=== PATIENT | female | born 1980 ===

== ENCOUNTER 2022-01-20 06:06 | Inpatient (IN) ==
[2022-01-20] MEDS ORDERED: Tobramycin Sulf (Sterile) 1.2 GM VIAL ONE (06:36)
[2022-01-20] MEDS ORDERED: Ethanol\\Acetic Acid\\Na Ace\\Ben 1,000 ML IRRIG.SOLN IR ONE (06:36)
[2022-01-20] MEDS ORDERED: Vancomycin 1,000 MG VIAL ONE (06:37)
[2022-01-20] MEDS ORDERED: CeFAZolin Syr 3,000MG/30 ML 3,000 MG/30 ML SYRINGE IVPB ONE (06:49)
[2022-01-20] MEDS ORDERED: Gentamicin 440 MG in 0.9 % Sodium Chloride 100 ML IVPB ONE (06:50)
[2022-01-20] MEDS ORDERED: Ringers Solution, Lactated 1,000 ML IVC SCH ×2 (07:00→11:53)
[2022-01-20] MEDS ORDERED: *HR* Midazolam HCl 2 MG/2 ML VIAL ONE (07:38)
[2022-01-20] MEDS ORDERED: ROPIVACAINE/PF/NS 0.25% 1 EACH SYRINGE INTRAART ONE (07:39)
[2022-01-20] MEDS ORDERED: Ropivacaine/PF 0.5% 30 ML VIAL ONE (07:39)
[2022-01-20] MEDS ORDERED: *HR* Propofol 200 MG/20 ML VIAL IVP ONE ×2 (07:55→09:54)
[2022-01-20] MEDS ORDERED: Lidocaine -MPF 2% 5 ML VIAL ONE (07:57)
[2022-01-20] MEDS ORDERED: *HR* Succinylcholine 200 MG/10 ML VIAL IVP ONE (07:57)
[2022-01-20] MEDS ORDERED: Ondansetron 4 MG/2 ML VIAL ONE (07:57)
[2022-01-20] MEDS ORDERED: Tranexamic Acid 1,000 MG/10 ML VIAL ONE ×2 (08:01)
[2022-01-20] MEDS ORDERED: Ropivacaine/PF 0.5% 49.24 ML, EPINEPHrine 0.5 MG, cloNIDine 0.08 MG, 0.9 % Sodium Chlor... INTRAART ONE (08:15)
[2022-01-20] MEDS ORDERED: Povidone-Iodine 45 ML, Sodium Chloride IRRigation 1,000 ML IR ONE (08:15)
[2022-01-20] MEDS ORDERED: *HR* Rocuronium Bromide 50 MG/5 ML VIAL ONE (08:18)
[2022-01-20] MEDS ORDERED: *HR* Midazolam HCl 2 MG/2 ML VIAL IVP ONE ×2 (08:20→11:03)
[2022-01-20] MEDS ORDERED: *HR* FentaNYL (PF) 100 MCG/2 ML VIAL ONE (08:41)
[2022-01-20] MEDS ORDERED: Sugammadex Sodium 200 MG/2 ML VIAL IV ONE (09:42)
[2022-01-20] MEDS: *HR* HYDROmorphone PF 0.5 MG/0.5 ML SYRINGE IVP PRN ×4 (10:16→10:53)
[2022-01-20] MEDS ORDERED: Acetaminophen IV 1,000 MG/100 ML BAG IVPB ONE (10:34)
[2022-01-20] MEDS ORDERED: Naloxone 0.4 MG/ML INJ IVP PRN (11:53)
[2022-01-20] MEDS ORDERED: MOM Conc 10 ML UD.LIQ PO PRN (11:53)
[2022-01-20] MEDS ORDERED: Ondansetron 4 MG/2 ML VIAL IVP PRN (11:53)
[2022-01-20] MEDS ORDERED: *HR* Promethazine 25 MG/ML VIAL IM PRN (11:53)
[2022-01-20] MEDS ORDERED: Sennosides 8.6 MG TABLET PO PRN (11:53)
[2022-01-20] MEDS ORDERED: Ketorolac 30 MG/ML VIAL IVP ONE (13:01)
[2022-01-20] MEDS ORDERED: Pregabalin 75 MG CAPSULE PO ONE (13:02)
[2022-01-20] MEDS ORDERED: tiZANidine 4 MG TABLET PO ONE (13:03)
[2022-01-20] MEDS: Ketorolac 30 MG/ML VIAL IVP SCH ×2 (14:58→17:30)
[2022-01-20] MEDS: Gabapentin 400 MG CAPSULE PO SCH ×2 (15:23→20:34)
[2022-01-20] MEDS: CeFAZolin 2 GM/120 ML BAG IVPB SCH (17:29)
[2022-01-20] MEDS: Ascorbic Acid 500 MG TABLET PO SCH (17:30)
[2022-01-20] MEDS: *HR* OxyCODONE Immed Rel 5 MG TABLET PO PRN (22:38)
[2022-01-21] MEDS: Ketorolac 30 MG/ML VIAL IVP SCH ×2 (00:15→05:30)
[2022-01-21] MEDS: CeFAZolin 2 GM/120 ML BAG IVPB SCH (00:19)
[2022-01-21] MEDS: *HR* OxyCODONE Immed Rel 5 MG TABLET PO PRN (05:30)
[2022-01-21 05:55] LABS: Basophils % 0.2 %; Eosinophils % 0.1 %; Hemoglobin 11.8 g/dL (11.5-15.4); Immature Granulocytes % 0.2 % (0-4); Lymphocytes # 1.5 K/mcL (0.6-4.6); Lymphocytes % 11.9 %; Mean Corpuscular HGB Conc 31.9 g/dL (31.6-35.5); Mean Corpuscular Hemoglobin 29.7 pg (28.0-33.3); Mean Corpuscular Volume 93.2 fL (83.0-100.0); Mean Platelet Volume 9.8 fL (9.4-12.4); Monocytes # 0.9 K/mcL (0.0-1.3); Neutrophils # 10.2 K/mcL (1.6-8.9); Platelet Count 312 K/mcL (140-400); Red Blood Count 3.97 M/mcL (3.82-4.97); Red Cell Distribution Width 13.2 % (11.5-14.5); Segmented Neutrophils % 80.6 %; White Blood Count 12.6 K/mcL (4.3-11.1)
[2022-01-21 06:09] LABS: BUN/Creatinine Ratio 14 (6-26); Blood Urea Nitrogen 11 mg/dL (6-20); Calcium 8.8 mg/dL (8.6-10.3); Carbon Dioxide 26 mEq/L (23-29); Chloride 103 mEq/L (98-107); Glucose 114 mg/dL (70-105); Osmolality,Calculated 284 (280-300); Potassium 4.1 mEq/L (3.5-5.1); Sodium 137 mEq/L (136-145); eGFR For African Americans > 60 (> 60); eGFR For Non-African Americans > 60 (> 60)
[2022-01-21 08:19] VITALS: BP 129/82; PULSE 79; TEMP 97.7
[2022-01-21] MEDS: Gabapentin 400 MG CAPSULE PO SCH (08:43)
[2022-01-21] MEDS: Ascorbic Acid 500 MG TABLET PO SCH (08:43)
[2022-01-21] MEDS ORDERED: Multivit/Ca/Min/Fe/FA 1 TAB TABLET PO SCH (09:00)
[2022-01-21 10:29] VITALS: O2SAT 98
[2022-01-21] MEDS ORDERED: Aspirin Enteric Coated 81 MG Tablet PO SCH (21:00)
== END 2022-01-21 13:30 | disposition home or self-care (01) | DRG 325 ==
LOC: SDCAOSI 06:06 → 4WAOSI 14:55
PROVIDERS: ADMIT Orthopaedic Surgery; ATTEND Orthopaedic Surgery